=== PATIENT | male | born 1995 | race Caucasian/White ===

== ENCOUNTER 2020-11-09 10:29 | Observation (INO) | payer OTHER ==
[2020-11-09 12:20] LABS: HEMOGLOBIN 17.1 gm/dl (14.0-17.5); RED BLOOD COUNT 5.94 M/UL (4.20-5.50); WHITE BLOOD COUNT 15.8 K/UL (4.5-11.0)
[2020-11-09 12:43] LABS: BUN/CREATININE RATIO 9 (0-10)
[2020-11-09] MEDS ORDERED: ADIPEX-P37.5 M1 PO (15:06)
[2020-11-09] MEDS ORDERED: HYDROCODON-ACE1 EAC4 PO (16:39)
== END 2020-11-09 19:33 | disposition home or self-care (01) ==
LOC: ER1 10:29 → CDU 14:07
PROVIDERS: Family Medicine; ADMIT Surgery
DX: K35.33 Acute appendicitis with perforation, localized peritonitis, and gangrene, with abscess (principal); D72.829 Elevated white blood cell count, unspecified; Z20.822 Contact with and (suspected) exposure to COVID-19
CPT/HCPCS: 80053; 81001; 82150; 83605; 83690; 85025; 87635; 99285; G0378; J1100; J1170; J2250; J2405; J2543; J2704; J3010; J7030; J7120; Q9967

== ENCOUNTER 2021-08-12 19:11 | Emergency (ER) | payer BC ==
[~2021-08-12 19:11] MED LIST: ADIPEX-P37.5 M1 PO; HYDROCODON-ACE1 EAC4 PO
== END 2021-08-12 23:15 | disposition home or self-care (01) ==
LOC: ER1 19:11
DX: U07.1 COVID-19 (principal); Z23 Encounter for immunization; F17.290 Nicotine dependence, other tobacco product, uncomplicated
CPT/HCPCS: 99283; M0243; U0002